=== PATIENT | male | born 1940 | race Caucasian/White ===

== ENCOUNTER → 2020-08-17 08:37 | Outpatient (BNVA) | payer OTHER, SELFPAY | PROVIDERS: PCP Internal Medicine; Visit Provider Internal Medicine | DX: J44.9 Chronic obstructive pulmonary disease, unspecified (principal); R06.02 Shortness of breath | CPT/HCPCS: 99212 ==

== ENCOUNTER 2020-09-02 10:39 | Outpatient (REF) | payer OTHER, SELFPAY ==
--- NOTE | 2020-09-02 11:50 | PFT_ITS ---
Forced vital capacity and FEV1 are both moderately reduced. ETV28-50 and MVV are also moderately reduced. No response to bronchodilators is noted. Total lung capacity moderately reduced. Diffusion capacity is markedly reduced. CONCLUSION: Restrictive pulmonary disorder, moderately severe. No obstructive component is noted. No response to bronchodilator therapy. MD PAYTON Higgins/MODL / [id number]
== END 2020-09-02 10:40 | disposition home or self-care (01) ==
LOC: HO.RESP 10:39
PROVIDERS: Visit Provider Internal Medicine
DX: J44.9 Chronic obstructive pulmonary disease, unspecified (principal); R06.02 Shortness of breath
CPT/HCPCS: 94060; 94727; 94729

== ENCOUNTER → 2020-09-28 10:19 | Outpatient (BNVA) | payer OTHER, SELFPAY | PROVIDERS: Visit Provider Internal Medicine | DX: J44.9 Chronic obstructive pulmonary disease, unspecified (principal); R06.02 Shortness of breath | CPT/HCPCS: 99212 ==

== ENCOUNTER → 2021-02-02 10:48 | Outpatient (BNVA) | payer OTHER, SELFPAY | PROVIDERS: PCP Internal Medicine; Visit Provider Internal Medicine | DX: J44.9 Chronic obstructive pulmonary disease, unspecified (principal); J30.9 Allergic rhinitis, unspecified; R06.02 Shortness of breath | CPT/HCPCS: 99212 ==

== ENCOUNTER → 2021-07-29 10:43 | Outpatient (BNVA) | payer OTHER, SELFPAY | PROVIDERS: PCP Internal Medicine; Visit Provider Internal Medicine | DX: J44.9 Chronic obstructive pulmonary disease, unspecified (principal); J98.4 Other disorders of lung; J30.9 Allergic rhinitis, unspecified; Z79.899 Other long term (current) drug therapy | CPT/HCPCS: 99212 ==

== ENCOUNTER → 2022-01-13 09:56 | Outpatient (BNVA) | payer OTHER, SELFPAY | PROVIDERS: PCP Internal Medicine; Visit Provider Internal Medicine | DX: J44.9 Chronic obstructive pulmonary disease, unspecified (principal); J98.4 Other disorders of lung; J30.9 Allergic rhinitis, unspecified; G47.33 Obstructive sleep apnea (adult) (pediatric) | CPT/HCPCS: 99212 ==

== ENCOUNTER → 2022-07-19 10:13 | Outpatient (BNVA) | payer OTHER, SELFPAY | PROVIDERS: PCP Internal Medicine; Visit Provider Internal Medicine | DX: J44.9 Chronic obstructive pulmonary disease, unspecified (principal); J98.4 Other disorders of lung; J30.9 Allergic rhinitis, unspecified; G47.33 Obstructive sleep apnea (adult) (pediatric); F17.210 Nicotine dependence, cigarettes, uncomplicated | CPT/HCPCS: 99212 ==

== ENCOUNTER → 2023-01-17 10:32 | Outpatient (BNVA) | payer OTHER, SELFPAY | PROVIDERS: PCP Internal Medicine; Visit Provider Internal Medicine ==

== ENCOUNTER 2023-07-18 10:16 | Outpatient (AMB) | payer OTHER, SELFPAY ==
--- NOTE | 2023-07-18 10:33 | MHC.OFFVIS ---
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 HE HAS STOPPED USING THE CPAP HE USED TO SAY THAT HE CAN SLEEP BETTER WITHOUT CPAP. HOWEVER NOW HE IS TELLING ME THAT HE IS NOT SLEEPING WELL. HIS SLEEP SCHEDULE IS ERRATIC . MANY TIMES HE IS SLEEPING IN THE EARLY HOURS WHEN WATCHING TV. THIS BEING THE REASON THAT HE DOES NOT THINK HE WILL USE CPAP FOR MORE THAN A FEW HOURS IN 24 HOURS. BREATHING STILL HE IS FAIRLY STABLE EXCEPT FOR THE FACT THAT HE HAS AN URGE TO CLEAR MUCUS ESPECIALLY IN THE MORNING HOURS. HIS WALKING AROUND IS SLOW SO HE DOES NOT HAVE ANY SIGNIFICANT SHORTNESS OF BREATH WHEN WALKING. HE DOES USE HIS INHALERS REGULARLY. HE STILL SMOKES HALF PACK OF CIGARETTES A DAY. [facility] Medical History Smoker JESSICA (obstructive sleep apnea) Allergic rhinitis Restrictive lung disease Short of breath on exertion COPD (chronic obstructive pulmonary disease) Social History Patient Tobacco Use Status: Current everyday Tobacco user Cigarette Packs Per Day: 0.5 Cigarettes Per Day: 10 Years Smoked: 58 Review of Systems Const All systems reviewed & are unremarkable except as noted in HPI and below Eyes Reports no additional complaints ENT Reports nasal congestion (Especially at nighttime) Card Denies chest pain, Denies irregular heart rhythm, Denies leg edema and Reports other (Has a pacemaker.) Resp Reports as per HPI GI Reports no additional complaints Reports no additional complaints Musc Reports back pain (Mild stiffness) Skin/Breast Reports system reviewed and no additional complaints, except as documented Neuro Reports no additional complaints Psych Reports no additional complaints Physical Exam Vital Signs: Last Vital Signs Pulse 62 07/18/23 10:34 BP 110/52 L 07/18/23 10:34 Pulse Ox 96 07/18/23 10:34 Oxygen Delivery Method Room Air 07/18/23 10:34 BMI result Body Mass Index 30.1 Const Other: Moderately obese General: comfortable, no acute distress, alert and awake Orientation/consciousness: patient oriented x3 HEENT Head: Yes normal to inspection General nose exam: No nasal polyps present and No nasal discharge present Face and sinus: Yes sinuses nontender Mouth: oropharynx normal Throat: Yes posterior oropharynx normal Eyes General: appearance normal, both eyes and all related structures Neck Neck: Yes normal visual inspection, Yes no lymphadenopathy, Yes trachea midline and Yes no JVD Thyroid: Thyroid normal Chest Chest palpation & inspection: normal inspection of the chest, normal palpation of entire chest wall, no tenderness and other (Pacemaker battery in the left pectoral area) Resp Other: Percussion note resonant, breath sounds are distant with prolonged Exp. phase No wheezes , rhonchi or crepitations are heard. Cardio Palpation: normal PMI Rate: regular rate Rhythm: regular rhythm Heart sounds: no gallops and no murmurs GI Palpation (GI): Soft to palpation, nontender, No hepatosplenomegaly present and no masses Auscultation: normal bowel sounds Back/Spine/Pelvis Thoracic/Lumbar Spine: thoracic and lumbar spine normal to inspection and thoraco-lumbar ROM limited Skin General skin exam: no rashes or lesions noted and dry skin Neuro General: patient oriented x3 and no focal motor deficits Cranial nerves: Yes CN's II-XII intact bilaterally Extrem General: Yes normal to inspection, Yes no calf tenderness and Yes venous stasis dermatitis Psych Appearance: grossly normal and well kempt Speech and movement: Normal speech and movement present Assessment & Plan Assessment & Plan (1) COPD (chronic obstructive pulmonary disease): Comment: He does have chronic obstructive pulmonary disease. Currently seems to be stable except for some mucous problem Code(s): J44.9 - Chronic obstructive pulmonary disease, unspecified Category: Medical Plan: [place] continue Wixela 250-50 one inh bid . Spiriva Respimat 2 inhalations once a day For mucus he may use Mucinex 400 mg bid ( may increase to 2 tablets twice a day ) He was explained that as long as he is smoking he will continue to have cough with urge to clear the mucus, (2) Smoker: Comment: He is still smoking and has smokes at least half pack of cigarettes a day. Code(s): F17.200 - Nicotine dependence, unspecified, uncomplicated Category: Social Hx Plan: Discussed in detail with him about the risks of continued smoking. Advised that he should try to cut down the number of cigarettes and with the goal of complete cessation , but he does not show any motivation to stop completely. (3) Restrictive lung disease: Comment: As per pulmonary function test he has moderately severe restrictive pulmonary disorder, Which is most likely related to his abdominal obesity. Discussed with him and advised that he should try to lose about 10 lb of weight. Also do deep breathing exercises t.i.d.. Code(s): J98.4 - Other disorders of lung Category: Medical Plan: as above (4) JESSICA (obstructive sleep apnea): Comment: He is not using the CPAP . Complains of poor sleep mainly because of his erratic sleep schedule. He needs to follow the [place] outpatient , [place] service for the CPAP. Code(s): G47.33 - Obstructive sleep apnea (adult) (pediatric) Category: Medical Plan: I talked to him and advise that he should start using the CPAP. He can use CPAP even during the daytime when he takes a nap. I think it is important for him to use the CPAP to improve his sleep. Coding Level of Care Code Est Pt Level 3 (06076) Diagnoses COPD (chronic obstructive pulmonary disease) J44.9 Smoker F17.200 Restrictive lung disease J98.4 JESSICA (obstructive sleep apnea) G47.33
[2023-07-18 10:34] VITALS: BP 110/52; PULSE 62; O2SAT 96; BMI 30.1
== END 2023-07-18 10:54 | disposition home or self-care (01) ==
PROVIDERS: PCP Internal Medicine; Referring Provider Internal Medicine; Visit Provider Internal Medicine
DX: J44.9 Chronic obstructive pulmonary disease, unspecified (principal); F17.200 Nicotine dependence, unspecified, uncomplicated; J98.4 Other disorders of lung; G47.33 Obstructive sleep apnea (adult) (pediatric)
CPT/HCPCS: 99213

== ENCOUNTER → 2023-07-18 10:16 | Outpatient (BNVA) | payer OTHER, SELFPAY | PROVIDERS: PCP Internal Medicine; Visit Provider Internal Medicine | DX: J44.9 Chronic obstructive pulmonary disease, unspecified (principal); J98.4 Other disorders of lung; G47.33 Obstructive sleep apnea (adult) (pediatric); F17.210 Nicotine dependence, cigarettes, uncomplicated; Z79.899 Other long term (current) drug therapy | CPT/HCPCS: 99212 ==

== ENCOUNTER 2023-12-07 15:07 | Outpatient (AMB) | payer OTHER, SELFPAY ==
--- NOTE | 2023-12-07 15:20 | A.OFFVIS_ITS ---
Vital Signs 12/07/23 15:22 Height 5 ft 8 in Weight 192 lb 14.472 oz BMI 29.3 BP 120/60 Blood Pressure Location Lt brachial Position Sitting Pulse 86 Pulse Source Pulse Oximeter Pulse Oximetry (%) 96 Oxygen Delivery Method Room Air Intake Visit Reasons: copd Intake Note: pt is here for follow up and states he is doing okay, some short of breath due to inactivity he feels. 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 Allergies atorvastatin Allergy (Unknown, Uncoded 12/07/23 15:41) Unknown Medication List - Last Reconciled 12/07/23 by Sunni Salinas MD apixaban (Eliquis) 2.5 mg PO BID atenolol 12.5 mg PO DAILY cholecalciferol (vitamin D3) 25 mcg PO DAILY fluticasone propion-salmeterol 250-50 mcg/dose (Wixela Inhub) 1 inh inhalation BID furosemide 20 mg PO QAM gabapentin 300 mg PO BEDTIME magnesium oxide 400 mg PO DAILY potassium chloride ER 10 mEq PO DAILY rosuvastatin 40 mg PO DAILY thiamine HCl (vitamin B1) 100 mg PO DAILY tiotropium bromide 2.5 mcg/actuation (Spiriva Respimat) 2 inhalations inhalation QAM valsartan 80 mg PO DAILY Do you need a note to return to daycare/school/sports/work: No HPI HPI copd: Details: Mr. Yu 83 years old gentleman is here for his regular 6 months follow-up. Breathing bauman he is doing okay. He has had no need to use the rescue inhaler at all. He does get short of breath if he walks up hill or fast however his walking is slow , he is doing okay. He is smoking about 10 cigarettes a day. As far as sleep apnea is concerned he does not use the CPAP at all. He claims that he is sleeping well at least 7 hours every night. He denies any daytime sleepiness . Is main problem at this time is diarrhea for about 2-3 months, He has been seen in the emergency room and now he plans to see his primary care physician. [facility] Medical History Smoker JESSICA (obstructive sleep apnea) Allergic rhinitis Restrictive lung disease Short of breath on exertion COPD (chronic obstructive pulmonary disease) Social History Patient Tobacco Use Status: Current everyday Tobacco user Cigarette Packs Per Day: 0.5 Cigarettes Per Day: 10 Years Smoked: 58 Review of Systems Const All systems reviewed & are unremarkable except as noted in HPI and below Eyes Reports no additional complaints ENT Reports nasal congestion (Especially at nighttime) Card Denies chest pain, Denies irregular heart rhythm, Denies leg edema and Reports other (Has a pacemaker.) Resp Reports as per HPI GI Reports no additional complaints Reports no additional complaints Musc Reports back pain (Mild stiffness) Skin/Breast Reports system reviewed and no additional complaints, except as documented Neuro Reports no additional complaints Psych Reports no additional complaints Physical Exam Const Other: Moderately obese General: comfortable, no acute distress, alert and awake Orientation/consciousness: patient oriented x3 HEENT Head: Yes normal to inspection General nose exam: No nasal polyps present and No nasal discharge present Face and sinus: Yes sinuses nontender Mouth: oropharynx normal Throat: Yes posterior oropharynx normal Eyes General: appearance normal, both eyes and all related structures Neck Neck: Yes normal visual inspection, Yes no lymphadenopathy, Yes trachea midline and Yes no JVD Thyroid: Thyroid normal Chest Chest palpation & inspection: normal inspection of the chest, normal palpation of entire chest wall, no tenderness and other (Pacemaker battery in the left pectoral area) Resp Other: Percussion note resonant, breath sounds are distant with prolonged Exp. phase No wheezes , rhonchi or crepitations are heard. Cardio Palpation: normal PMI Rate: regular rate Rhythm: regular rhythm Heart sounds: no gallops and no murmurs GI Palpation (GI): Soft to palpation, nontender, No hepatosplenomegaly present and no masses Auscultation: normal bowel sounds Back/Spine/Pelvis Thoracic/Lumbar Spine: thoracic and lumbar spine normal to inspection and thoraco-lumbar ROM limited Skin General skin exam: no rashes or lesions noted and dry skin Neuro General: patient oriented x3 and no focal motor deficits Cranial nerves: Yes CN's II-XII intact bilaterally Extrem General: Yes normal to inspection, Yes no calf tenderness and Yes venous stasis dermatitis Psych Appearance: grossly normal and well kempt Speech and movement: Normal speech and movement present Assessment & Plan Assessment & Plan (1) COPD (chronic obstructive pulmonary disease): Comment: He does have chronic obstructive pulmonary disease, Moderately severe. Currently seems to be stable except for some mucous problem . Code(s): J44.9 - Chronic obstructive pulmonary disease, unspecified Category: Medical Plan: Continue Wixela 250-50 1 inhalation b.i.d. , Spiriva Respimat 2.5 mcg per actuation 2 inhalations daily , does not need any rescue inhaler. Use Mucinex 600 mg once or twice a day as needed (2) Smoker: Comment: He is still smoking and smokes at least half pack of cigarettes a day. Code(s): F17.200 - Nicotine dependence, unspecified, uncomplicated Category: Social Hx Plan: Talked to him about cessation but he say is he would not be able to stop completely . (3) JESSICA (obstructive sleep apnea): Comment: He does have history of sleep apnea has use CPAP in the past. But is not using the CPAP now . Complains of poor sleep mainly because of his erratic sleep schedule. He needs to follow up with the [place] outpatient respiratory service for the CPAP. Code(s): G47.33 - Obstructive sleep apnea (adult) (pediatric) Category: Medical Plan: As long as he can get 6-7 hours of sleep at night it is okay to go without the CPAP (4) Allergic rhinitis: Comment: Has symptoms of mild allergic rhinitis especially at night, doing okay at present. Code(s): J30.9 - Allergic rhinitis, unspecified Category: Medical Plan: Advised to use Flonase 2 spray each nostril daily. During Winter he is advised to use vaporizer in the bedroom at night and in the living room during the daytime. (5) Restrictive lung disease: Comment: As per pulmonary function test he has moderately severe restrictive pulmonary disorder, Which is most likely related to his abdominal obesity. Code(s): J98.4 - Other disorders of lung Category: Medical Plan: Advised that he should do deep breathing exercises 2 to 3 times a day Coding Level of Care Code Est Pt Level 3 (09199) Diagnoses COPD (chronic obstructive pulmonary disease) J44.9 Smoker F17.200 JESSICA (obstructive sleep apnea) G47.33 Allergic rhinitis J30.9 Restrictive lung disease J98.4
[2023-12-07 15:22] VITALS: BP 120/60; PULSE 86; O2SAT 96; BMI 29.3
== END 2023-12-07 15:42 | disposition home or self-care (01) ==
PROVIDERS: PCP Internal Medicine; Visit Provider Internal Medicine
DX: J44.9 Chronic obstructive pulmonary disease, unspecified (principal); F17.200 Nicotine dependence, unspecified, uncomplicated; G47.33 Obstructive sleep apnea (adult) (pediatric); J30.9 Allergic rhinitis, unspecified; J98.4 Other disorders of lung
CPT/HCPCS: 99213

== ENCOUNTER → 2023-12-07 15:07 | Outpatient (BNVA) | payer OTHER, SELFPAY | PROVIDERS: PCP Internal Medicine; Visit Provider Internal Medicine | DX: J44.9 Chronic obstructive pulmonary disease, unspecified (principal); G47.33 Obstructive sleep apnea (adult) (pediatric); J30.9 Allergic rhinitis, unspecified; J98.4 Other disorders of lung; F17.210 Nicotine dependence, cigarettes, uncomplicated | CPT/HCPCS: 99212 ==

== ENCOUNTER 2024-06-11 15:27 | Outpatient (AMB) | payer OTHER, SELFPAY ==
[2024-06-11 15:33] VITALS: BP 110/62; PULSE 65; O2SAT 98; BMI 29.3
--- NOTE | 2024-06-11 15:33 | MHC.OFFVIS ---
Vital Signs 06/11/24 15:33 Height 5 ft 8 in Weight 193 lb 0.8 oz BMI 29.3 BP 110/62 Blood Pressure Location Lt brachial Position Sitting Pulse 65 Pulse Source Pulse Oximeter Pulse Oximetry (%) 98 Oxygen Delivery Method Room Air Intake Visit Reasons: copd Intake Note: pt is here for follow up and states, he states he is about the same with his breathing Environmental Adviser Required: No Allergies atorvastatin Allergy (Unknown, Uncoded 06/11/24 15:39) Unknown HPI HPI copd: Details: THIS 84 YEARS OLD GENTLEMAN WITH CHRONIC OBSTRUCTIVE PULMONARY DISEASE. COMES FOR FOLLOW-UP AFTER 6 MONTHS. CONTINUES TO USE HIS INHALERS INCLUDING WIXELA 250-50 B.I.D. AND SPIRIVA RESPIMAT 2 INHALATIONS DAILY. HE DOES NOT NEED TO USE THE RESCUE INHALER EXCEPT OCCASIONALLY. STILL SMOKING 10 CIGARETTES A DAY AND HAS NO PLAN TO CUT IT DOWN. 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 HAS NOT NEEDED TO USE O2. [facility] Medical History Smoker JESSICA (obstructive sleep apnea) Allergic rhinitis Restrictive lung disease Short of breath on exertion COPD (chronic obstructive pulmonary disease) Social History Patient Tobacco Use Status: Current everyday Tobacco user Cigarette Packs Per Day: 0.5 Cigarettes Per Day: 10 Years Smoked: 58 Review of Systems Const All systems reviewed & are unremarkable except as noted in HPI and below Eyes Reports no additional complaints ENT Reports nasal congestion (Especially at nighttime) Card Denies chest pain, Denies irregular heart rhythm, Denies leg edema and Reports other (Has a pacemaker.) Resp Reports as per HPI GI Reports no additional complaints Reports no additional complaints Musc Reports back pain (Mild stiffness) Skin/Breast Reports system reviewed and no additional complaints, except as documented Neuro Reports no additional complaints Psych Reports no additional complaints Physical Exam Vital Signs: Last Vital Signs Pulse 65 06/11/24 15:33 BP 110/62 06/11/24 15:33 Pulse Ox 98 06/11/24 15:33 Oxygen Delivery Method Room Air 06/11/24 15:33 BMI result Body Mass Index 29.3 Const Other: Moderately obese General: comfortable, no acute distress, alert and awake Orientation/consciousness: patient oriented x3 HEENT Head: Yes normal to inspection General nose exam: No nasal polyps present and No nasal discharge present Face and sinus: Yes sinuses nontender Mouth: oropharynx normal Throat: Yes posterior oropharynx normal Eyes General: appearance normal, both eyes and all related structures Neck Neck: Yes normal visual inspection, Yes no lymphadenopathy, Yes trachea midline and Yes no JVD Thyroid: Thyroid normal Chest Chest palpation & inspection: normal inspection of the chest, normal palpation of entire chest wall, no tenderness and other (Pacemaker battery in the left pectoral area) Resp Other: Percussion note resonant, breath sounds are distant with prolonged Exp. phase No wheezes , rhonchi or crepitations are heard. Cardio Palpation: normal PMI Rate: regular rate Rhythm: regular rhythm Heart sounds: no gallops and no murmurs GI Palpation (GI): Soft to palpation, nontender, No hepatosplenomegaly present and no masses Auscultation: normal bowel sounds Back/Spine/Pelvis Thoracic/Lumbar Spine: thoracic and lumbar spine normal to inspection and thoraco-lumbar ROM limited Skin General skin exam: no rashes or lesions noted and dry skin Neuro General: patient oriented x3 and no focal motor deficits Cranial nerves: Yes CN's II-XII intact bilaterally Extrem General: Yes normal to inspection, Yes no calf tenderness and Yes venous stasis dermatitis Psych Appearance: grossly normal and well kempt Speech and movement: Normal speech and movement present Assessment & Plan Assessment & Plan (1) COPD (chronic obstructive pulmonary disease): Comment: He does have chronic obstructive pulmonary disease, Moderately severe. Currently seems to be stable except for some mucous problem and mild intermittent cough. Code(s): J44.9 - Chronic obstructive pulmonary disease, unspecified Category: Medical Plan: Continue Wixela 250-50 1 inhalation b.i.d. and Spiriva Respimat 2.5 mcg 2 inhalations daily Albuterol HFA 2 puffs Q 4-6 hours only p.r.n. (2) Restrictive lung disease: Comment: As per pulmonary function test he has moderately severe restrictive pulmonary disorder, Which is most likely related to his abdominal obesity. Code(s): J98.4 - Other disorders of lung Category: Medical Plan: Try to keep weight under control. And do deep breathing exercises at least 3 times a day. (3) JESSICA (obstructive sleep apnea): Comment: He does have history of sleep apnea has use CPAP in the past. But is not using the CPAP now . Complains of poor sleep mainly because of his erratic sleep schedule. He needs to follow up with the [place] outpatient respiratory service for the CPAP. And management of sleep apnea. Code(s): G47.33 - Obstructive sleep apnea (adult) (pediatric) Category: Medical Plan: as above (4) Smoker: Comment: He is still smoking and smokes at least half pack of cigarettes a day. Code(s): F17.200 - Nicotine dependence, unspecified, uncomplicated Category: Social Hx Plan: Discussed with him again and he has no intention of quitting or cutting down the number of cigarettes. Coding Level of Care Code Est Pt Level 3 (17492) Diagnoses COPD (chronic obstructive pulmonary disease) J44.9 Restrictive lung disease J98.4 JESSICA (obstructive sleep apnea) G47.33 Smoker F17.200
--- OUTSIDE RECORDS SUMMARY | 2024-06-11 18:22 | XMS_ITS ---
Author Organization [facility] Address [address] [place] [id number] Care Team Providers Care Special Agent Name Role Phone Mehdi Yadav Primary Care Provider Antonio Gilmore [facility] [phone] Encounters Encounter Location Date Provider Diagnosis [facility] [address] [id number] 07/18/2023 Antonio Topete Plan Of Treatment No Information Progress Notes * Siddhartha CRANEOB:1940 ( 84 yo M)Acc No.[id number]:07/18/2023 Progress Notes Patient:?Uriel CRANE Provider:?Antonio Topete DPM :1940???Age:83 Y???Sex:Male Carlos e:07/18/2023 Address:[address] [place], [place] [id number] Pcp:Mehdi Yadav Subjective: * Chief Complaints: * ??? * Medical History:? Objective: * Vitals:? Assessment: Plan: * Treatment: * Images: * The named appointment provid er may or may not be the originator of this progress note, and it is not deemed complete until electronically signed by the appointment provider. Sign off status: Pending * Provider:?Antonio Topete DPM Date:? 024 Generated for Donta smith/Shyam/Areliitting on:?06/11/2024 11:06 AM EDT
--- OUTSIDE RECORDS SUMMARY | 2024-06-11 18:22 | XMS_ITS | Clinical Summary ---
Author Organization [facility] Address [address] [place] [address] Phone Care Team Providers Care Thread Puller Name Role Phone Mehdi Yadav MD Primary Care Provider Allergies No known active allergies Medications apixaban (ELIQUIS) 2.5 mg tablet Take 1 tablet (2.5 mg total) by mouth 2 (two) times a day. Active atenoloL (TENORMIN) 25 mg tablet Take 0.5 tablets (12.5 mg total) by mouth 1 (one) time each day. Active cholecalciferol (VITAMIN D-3) 25 mcg (1,000 unit) tablet Take 1 tablet (1,000 Units total) by mouth 1 (one) time each day. Active cyanocobalamin (VITAMIN B-12) 1,000 mcg tablet Take 1 tablet (1,000 mcg total) by mouth 1 (one) time each day. Active fluticasone-karely meterol (ADVAIR DISKUS) 250-50 mcg/dose diskus inhaler Inhale 1 puff by mouth 2 (two) times a day. Active fluticasone propionate (FLONASE) 50 mcg/actuation nasal spray Administer 1 spray into affected nostril(s). Active furosemide (LASIX) 20 mg tablet Take 1 tablet (20 mg total) by mouth 1 (one) time each day. Active gabapentin (NEURONTIN) 300 mg capsule Take 1 capsule (300 mg total) by mouth at bedtime. Active omega-3 acid ethyl esters (LOVAZA) 1 gram capsule Take 1 capsule (1 g total) by mouth 1 (one) time each day. Active potassium chloride (Pokonza) 10 mEq packet Take 1 tablet by mouth 2 (two) times a day. Active rosuvastatin (CRESTOR) 20 mg tablet Take 1 tablet (20 mg total) by mouth 1 (one) time each day. Active tiotropium (Spiriva Respimat) 2.5 mcg/actuation inhalation spray Inhale 2 puffs by mouth 1 (one) time each day. Active valsartan (DIOVAN) 80 mg tablet Take 1 tablet (80 mg total) by mouth 1 (one) time each day. Active THIAMINE HCL, VITAMIN B1, ORAL Take 100 mg by mouth 1 (one) time each day. Active magnesium oxide (MAG-OX) 400 mg magnesium tablet Take 1 tablet (400 mg total) by mouth 1 (one) time each day. Active Active Problems Problem Noted Date Diagnosed Date Atrial fibrillation 07/23/2021 Overview (12/26/2023): Last Assessment & Plan: Patient with a history of PAF. Very rare breakthrough last episode in April short lived episode. Patient remains chronically anticoagulated with adjustments made for age and renal insufficiency. Patient is asymptomatic from the A-fib. 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 He has a Medtronic device in place. He will continue with routine visits to our device clinic. Coronary artery disease 07/23/2021 Overview (12/26/2023): Last Assessment & Plan: Remote history of coronary disease. Asymptomatic at this time bypass is almost 20 years old lipid profile under good control [facility] Patient experiences no chest pain or discomfort though sedentary. Sleep apnea 07/23/2021 Overview (12/26/2023): Last Assessment & Plan: Patient strongly encouraged to pull out his tricycle out of his garage and start while riding on the street to try to build up stamina and to assess his functional capacity. Otherwise no change in therapy at this time patient complains of daytime tiredness and fatigue most likely secondary to poorly controlled sleep apnea. I have asked him discussed the possibility of a referral to a sleep pattern physician through the [facility]. [facility] is [facility] sleep [facility]. His daughter was present and has some experience with CPAP machines. And I encouraged them to discuss the possibility of referral for a sleep physician assessment or at least a titration study which she is never had Encounters Date Type Department Care Team Description 06/07/2024 7:20 PM EDT Ancillary Procedure [facility] [address] [place] [address] 05/09/2024 10:20 AM EST Ancillary Procedure [facility] [address] [facility] [address] [place] [phone] from Last 3 Months Immunizations Name Administration Dates Next Due Pfizer SARS-CoV-2 COVID-19, mRNA, LNP-S, preservative free 05/04/2020,04/13/2020 Social History Tobacco Use Types Packs/Day Years Used Date Smoking Tobacco: Every Day Smokeless Tobacco: Never Alcohol Use Standard Drinks/Week Comments Yes 0 (1 standard drink = 0.6 oz pur e alcohol) Sex and Gender Information Value Date Recorded Sex Assigned at Not on file Legal Sex Male 7:36 AM EST Gender Identity Not on file Sexual Orientation Not on file Obstetrics History Last Filed Vital Signs Vital Sign Reading Time Taken Comments Blood Pressure 108/52 02/05/2024 2:20 PM EST Pulse 71 02/05/2024 2:20 PM EST Temperature - - Respiratory Rate - - Oxygen Saturation - - Inhaled Oxygen Concentration - - Weight 86.2 kg (190 lb) 02/05/2024 2:20 PM EST Height 170.2 cm (5' 7 ) 02/05/2024 2:20 PM EST Body Mass Index 29.76 02/05/2024 2:20 PM EST Plan of Treatment Upcoming Encounters Date Type Department Care Team (Late Contact Info) Description 08/05/2024 11:00 AM EDT Ancillary Procedure [facility] Cardiology [facility] - [facility] [address] [place] [address] Health Maintenance Due Date Last Done Comments Zoster Vaccines (2 of 3) 02/01/2013 12/07/2012 RSV Immunization Adult Patients (1 - 1-dose 75+ series) 2013 Pneumococcal Vaccine: 50+ Years (2 of 2 - PPSV23) 10/03/2014 08/08/2014, 03/06/2008 Cholesterol Screening (Lipid Panel) 02/13/2022 Depression Screening 02/13/2022 Falls Risk Assessment 02/13/2022 Hypertension/CHF/CAD Annual BMP Blood Test 02/13/2022 Social Influencers of Health Screening 02/13/2022 COVID-19 Vaccine (3 - season) 2023 05/04/2020, 04/13/2020 DTaP,Tdap,and Td Vaccines (3 - Td or Tdap) 01/22/2024 01/21/2014, 03/06/2008 Influenza Vaccine Completed 12/20/2023, , 12/29/2021, Additional history exists HIB Vaccines Aged Out No longer eligi ble based on patient's age to complete this topic HPV Vaccines Aged Out No longer eligi ble based on patient's age to complete this topic Hepatitis A Vaccines Aged Out No long er eligible based on patient's age to complete this topic Hepatitis B Vaccines Aged Out No long er eligible based on patient's age to complete this topic IPV Vaccines Aged Out No longer eligi ble based on patient's age to complete this topic MMR Vaccines Aged Out No longer eligi ble based on patient's age to complete this topic Meningococcal ACWY Vaccine Aged Out N o longer eligible based on patient's age to complete this topic Meningococcal B Vaccine Aged Out No l onger eligible based on patient's age to complete this topic RSV Immunization Patients Under 20 months Aged Out No longer eligible based on patient's age to complete this topic Varicella Vaccines Aged Out No longer eligible based on patient's age to complete this topic Medical Devices Implanted Type Area Manager Retention Device Identifier Shelf Expiration Date Model / Serial / Lot Medt-Card Lv Xt Dr Salas [id number] Implanted:05/2021 (Quantity not on file) Cardiac Pacemaker MEDTRONIC - CARDIAC RHYTH-CRDM LV XT DR SALAS [id number] / [id number] / Procedures Procedure Name Priority Date/Time Associated Diagnosis Comments CARDIAC DEVICE CHECK- REMOTE- MURJ Routine 06/07/2024 7:16 PM EDT CARDIAC DEVICE CHECK- REMOTE- MURJ Routine 05/09/2024 10:16 AM EST from Last 3 Months Results * Cardiac device check - Remote- MURJ (06/07/2024 7:16 PM EDT) Only the most recent of2 resultswithin the time period is included. Date Time Interrogation Session [id number] CV DEVICE CHECK Type Interrogation Session Remote CV DEVICE CHECK Implantable Pulse Generator Manager Retention MDT CV DEVICE CHECK Implantable Pulse Generator Type IPG CV DEVICE CHECK Implantable Pulse Generator Model Al[place] XT DR MRI [id number] CV DEVICE CHECK Implantable Pulse Generator Serial Number [id number] CV DEVICE CHECK Implantable Pulse Generator Implant Date 20210706 CV DEVICE CHECK Battery Remaining Longevity 122.0 CV DEVICE CHECK Battery Voltage 3.010 CV D EVICE CHECK Battery MANAGER CENTER Trigger 2.625 CV DEVICE CHECK Battery Status Middle of Service CV DEVICE CHECK Sunil Statistic RA Percent Paced 95.71 CV DEVICE CHECK Sunil Statistic RV Percent Paced 99.97 CV DEVICE CHECK Atrial Tachy Statistic AT/AF [place] Percent 0.00 CV DEVICE CHECK Lead Channel Sensing Intrinsic Amplitude 3.750 CV DEVICE CHECK Lead Channel Setting Sensing Sensitivity 0.30 CV DEVICE CHECK Lead Channel Impedance Value 475 CV DEVICE CHECK Lead Channel Pacing Threshold Amplitude 0.625 CV DEVICE CHECK Lead Channel Pacing Threshold Pulse Width 0.4 CV DEVICE CHECK Lead Channel RA Pacing Threshold Date 2023-11-02 CV DEVICE CHECK Lead Channel Setting Pacing Amplitude 1.500 CV DEVICE CHECK Lead Channel Setting Pacing Pulse Width 0.4 CV DEVICE CHECK Lead Channel Sensing Intrinsic Amplitude 28.875 CV DEVICE CHECK Lead Channel Setting Sensing Sensitivity 0.90 CV DEVICE CHECK Lead Channel Impedance Value 589 CV DEVICE CHECK Lead Channel Pacing Threshold Amplitude 0.625 CV DEVICE CHECK Lead Channel Pacing Threshold Pulse Width 0.4 CV DEVICE CHECK Lead Channel RV Pacing Threshold Date 2023-11-02 CV DEVICE CHECK Lead Channel Setting Pacing Amplitude 2.000 CV DEVICE CHECK Lead Channel Setting Pacing Pulse Width 0.4 CV DEVICE CHECK Sunil Setting Mode (NBG Code) DDDR CV DEVICE CHECK Sunil Setting Lower Rate Limit 60 CV DEVICE CHECK Sunil Setting AT Mode Switch Rate 171 CV DEVICE CHECK Sunil Setting Maximum Tracking Rate 130 CV DEVICE CHECK Sunil Setting Maximum Sensor Rate 130 CV DEVICE CHECK Sunil Setting PAV Delay 180 CV DEVICE CHECK Sunil Setting JAY Delay 150 CV DEVICE CHECK Zone Setting Type Category AT/AF CV DEVICE CHECK Rate 171 CV DEVICE CHECK Therapies Some Rx Off CV DEVIC E CHECK Zone Setting Status Monitor CV DEVICE CHECK Zone ID 2 CV DEVICE CHECK Zone Setting Type Category VT CV DEVICE CHECK Rate 150 CV DEVICE CHECK Zone Setting Status ENABLED CV DEVICE CHECK Zone ID 6 CV DEVICE CHECK Date of Service 2023-11-28 CV DEVICE CHECK Anatomical Region Laterality Modality Device Interroga tion 11/03/2023 1:29 AM EDT Impressions 11/28/2023 12:46 PM EDT Normal Remote: No Events ?? Narrative Procedure Note Bao Pacheco MD - 06/07/2024 IMPRESSION: Normal Remote: No Events Bao Pacheco MD CV IMPLANTABLE CARDIAC DEVICE PROCEDURES Final Result from Last 3 Months Insurance [facility] Care Teams Thread Puller Relationship Specialty Start Date End Date Mehdi Yadav MD [address] [place] PCP - General Internal Medicine 07/23/21
--- OUTSIDE RECORDS SUMMARY | 2024-06-11 18:22 | XMS_ITS | Encounter Summary ---
Author Organization [facility] Address [address] [place] [address] Care Team Providers Care Galley Boy Name Role Phone Mehdi Yadav MD Primary Care Provider Encounter Details Date Type Department Care Team (Late st Contact Info) Description 06/07/2024 7:20 PM EDT Ancillary Procedure [facility] Cardiology [facility] [address] [facility] [address] [place] [phone] Social History Tobacco Use Types Packs/Day Years Used Date Smoking Tobacco: Every Day Smokeless Tobacco: Never Alcohol Use Standard Drinks/Week Comments Yes 0 (1 standard drink = 0.6 oz pur e alcohol) Sex and Gender Information Value Date Recorded Sex Assigned at Not on file Legal Sex Male 7:36 AM EST Gender Identity Not on file Sexual Orientation Not on file documented as of this encounter Plan of Treatment Upcoming Encounters Date Type Department Care Team (Late st Contact Info) Description 08/05/2024 11:00 AM EDT Ancillary Procedure [facility] Cardiology [facility] [address] [facility] [address] [place] [address] documented as of this encounter Procedures Procedure Name Priority Date/Time Associated Diagnosis Comments CARDIAC DEVICE CHECK- REMOTE- MURJ Routine 06/07/2024 7:16 PM EDT documented in this encounter Results * Cardiac device check - Remote- MURJ (06/07/2024 7:16 PM EDT) Date Time Interrogation Session [id number] CV DEVICE CHECK Type Interrogation Session Remote CV DEVICE CHECK Implantable Pulse Generator Software Programmer MDT CV DEVICE CHECK Implantable Pulse Generator Type IPG CV DEVICE CHECK Implantable Pulse Generator Model Ney XT DR MRI [id number] CV DEVICE CHECK Implantable Pulse Generator Serial Number [id number] CV DEVICE CHECK Implantable Pulse Generator Implant Date 20210706 CV DEVICE CHECK Battery Remaining Longevity 122.0 CV DEVICE CHECK Battery Voltage 3.010 CV D EVICE CHECK Battery WEB ASSISTANT Trigger 2.625 CV DEVICE CHECK Battery Status Middle of Service CV DEVICE CHECK Sunil Statistic RA Percent Paced 95.71 CV DEVICE CHECK Sunil Statistic RV Percent Paced 99.97 CV DEVICE CHECK Atrial Tachy Statistic AT/AF [place] Percent 0.00 CV DEVICE CHECK Lead Channel [...] CV IMPLANTABLE CARDIAC DEVICE PROCEDURES Final Result documented in this encounter Visit Diagnoses Not on filedocumented in this encounter Care Teams Galley Boy Relationship Specialty Start Date End Date Mehdi Yadav MD [address] [place] PCP - General Internal Medicine 07/23/21 documented as of this encounter
--- OUTSIDE RECORDS SUMMARY | 2024-06-11 18:22 | XMS_ITS | Patient Health Record ---
Author Organization [facility] Address [address] [place] [address] Care Team Providers Care Rn Gynecology Name Role Phone Mehdi Yadav Primary Care Provider UnaAntonio Butterfield Unavailable [phone] Reason For Referral No Information Plan Of Treatment No Information Insurance Providers Payer Name Payer Address Payer Phone Subscriber Number Group Number Insured Name Patient Relationship to Insured Coverage Start Date Coverage End Date VAC[employer] [address] [place] [id number] Uriel Yu Self - patient is the insured
--- OUTSIDE RECORDS SUMMARY | 2024-06-11 18:22 | XMS_ITS ---
Author Organization [facility] Address [address] [place] [address] Care Team Providers Care Salesperson Jewelry Name Role Phone Mehdi Yadav Primary Care Provider UnaAntonio Butterfield Unavailable [phone] REASON FOR VISIT 07/17/22 appt Encounters Encounter Location Date Provider Diagnosis [facility] [address] [address] 05/23/2023 Antonio Topete Plan Of Treatment No Information Progress Notes * Siddhartha CRANEOB:1940 ( 83 yo M)Acc No.[id number]:05/23/2023 Patient:?Uriel Crane :1940???Age:83 Y???Sex:Male Address:[address] [place] [address], [place], [address] * true * Date:? Generated for Donta smith/Shyam/eTransmitting on:?06/11/2024 11:06 AM EDT
== END 2024-06-11 15:53 | disposition home or self-care (01) ==
LOC: HO.HPS 15:27
PROVIDERS: PCP Internal Medicine; Visit Provider Internal Medicine
DX: J44.9 Chronic obstructive pulmonary disease, unspecified (principal); J98.4 Other disorders of lung; G47.33 Obstructive sleep apnea (adult) (pediatric); F17.200 Nicotine dependence, unspecified, uncomplicated
CPT/HCPCS: 99213

== ENCOUNTER → 2024-06-11 15:27 | Outpatient (BNVA) | payer OTHER, SELFPAY | PROVIDERS: PCP Internal Medicine; Visit Provider Internal Medicine | DX: J44.9 Chronic obstructive pulmonary disease, unspecified (principal); J98.4 Other disorders of lung; G47.33 Obstructive sleep apnea (adult) (pediatric); F17.210 Nicotine dependence, cigarettes, uncomplicated | CPT/HCPCS: 99212 ==

== ENCOUNTER 2024-12-10 15:09 | Outpatient (AMB) | payer OTHER, SELFPAY ==
--- OUTSIDE RECORDS SUMMARY | 2024-12-10 09:10 | XMS_ITS | Encounter Summary ---
Author Organization [facility] Address [address] [place] [address] Care Team Providers Care Supervising Floorperson Name Role Phone Physician, No Pcp Primary Care Provider Unavaila ble Reason for Visit * Reason Comments Follow-up * Other Medical (Routine) - Authorized Specialty Diagnoses / Procedures Referred By Contac t Referred To Contact Cardiology Diagnoses [Per MAGY, Follow up in about 3 months (around 10/16/2024) for Recheck, FOLLOW UP WITH AB.] 07/16/24, garth w/pt handed appt ltr- Sujey V Procedures OFFICE VISIT Nazario Bustillos DO [address] [place], [place] Phone: tel: fax: [facility] Cardiology [facility] [address] [place] [address] Phone: tel: fax: Referral ID Status Reason Start Date Expiration Date V isits Requested Visits Authorized [id number] Authorized 11/29/2024 12/10/[phone] Encounter Details Date Type Department Care Team (Late st Contact Info) Description 12/10/2024 9:10 AM EDT Office Visit [facility] Cardiology [facility] [address] [place] [address] Evelina Blackman NP [address] [place] [address] [place] [address] Coronary artery disease involving dry creek coronary artery of dry creek heart without angina pectoris (Primary Dx); Atrial fibrillation, unspecified type (CMS/HCC V24, CMS/HCC V28); Bradycardia; Localized edema Social History Tobacco Use Types Packs/Day Years [...] on file documented as of this encounter Last Filed Vital Signs Vital Sign Reading Time Taken Comments Blood Pressure 106/58 12/10/2024 9:13 AM EDT Pulse 81 12/10/2024 9:13 AM EDT Temperature - - Respiratory Rate - - Oxygen Saturation 95% 12/10/2024 9:13 AM EDT Inhaled Oxygen Concentration - - Weight 83.7 kg (184 lb 9.6 oz) 12/10/2024 9:13 A M EDT Height 172.7 cm (5' 8 ) 12/10/2024 9:13 AM EDT Body Mass Index 28.07 12/10/2024 9:13 AM EDT documented in this encounter Ordered Prescriptions Prescription Sig Dispense Quantity Refills Last Filled Start Date End Date rosuvastatin (CRESTOR) 20 mg tablet Take 1 tablet (20 mg total) by mouth 1 (one) time each day. 90 tablet 1 12/10/2024 apixaban (ELIQUIS) 2.5 mg tablet Take 1 tablet (2.5 mg total) by mouth 2 (two) times a day. 180 tablet 2 12/10/2024 documented in this encounter Progress Notes * Evelina Blackman NP - 12/10/2024 9:10 AM EDTAssociated Problem(s): Atrial fibrillation (CMS/HCC V24, CMS/HCC V28) Patient has history of paroxysmal atrial fibrillation with very rare breakthrough. He continues on chronic anticoagulation with Eliquis 2.5 mg twice daily. This is appropriately dosed given his advanced age and renal insufficiency. He remains asymptomatic and denies any bleeding or excessive bruising. * Evelina Blackman NP - 12/10/2024 9:10 AM EDTAssociated Problem(s): Bradycardia Patient has history of AV ja block status post permanent pacemaker. He has a Medtronic device inplace. He continues with routine visits to our device clinic. * Evelina Blackman NP - 12/10/2024 9:10 AM EDTAssociated Problem(s): Coronary artery disease Patient has history of coronary artery disease with previous bypass surgery. He feels well and denies any exertional anginal symptoms. He remains on cardioprotective medical therapy with beta-blockerand statin. He is on Eliquis for thrombolic protection. I have reviewed with the patient the importance of a heart healthy lifestyle which includes eating a low-fat low-salt diet, getting regular exercise, maintaining a healthy weight, not smoking, and following up with routine medical care. * Evelina Blackman NP - 12/10/2024 9:10 AM EDTAssociated Problem(s): Localized edema Patient reports that leg edema has improved since witching to torsemide. He also uses compression stockings which have been helpful. documented in this encounter Plan of Treatment Upcoming Encounters Date Type Department Care Team (Late st Contact Info) Description 08/05/2025 1:00 PM EDT Ancillary Procedure [facility] [address] [place] [address] documented as of this encounter Visit Diagnoses Diagnosis Coronary artery disease involving dry creek coronary artery of [place] heart without angina pectoris- Primary Atrial fibrillation, unspecified type (CMS/HCC V24, CMS/HCC V28) Bradycardia Other specified cardiac dysrhythmias Localized edema Edema Encounter for adjustment or management of cardiac device documented in this encounter Discontinued Medications Medication Sig Discontinue Reason Start Date End Da te apixaban (ELIQUIS) 5 mg tablet Take 0.5 tablets (2.5 mg total) by mouth 2 (two) times a day. Reorder 12/10/2024 rosuvastatin (CRESTOR) 40 mg tablet Take 0.5 tablets (20 mg total) by mouth 1 (one) time each day. Reorder 12/10/2024 documented as of this encounter Care Teams Supervising Floorperson Relationship Specialty Start Date End Date Physician, No Pcp PCP - General 11/18/24 documented as of this encounter
--- NOTE | 2024-12-10 15:14 | A.OFFVIS_ITS ---
Vital Signs 12/10/24 15:16 Height 5 ft 8 in Weight 184 lb 0.6 oz BMI 28.0 BP 112/60 Blood Pressure Location Lt brachial Position Sitting Pulse 81 Pulse Source Pulse Oximeter Pulse Oximetry (%) 96 Oxygen Delivery Method Room Air Intake Visit Reasons: copd Intake Note: pt is here for follow up and little coughing, wheezing and some short of breath, pt uses nebulizer prn Coremaking Machine Setter Required: No Delivery Room Clerk: Delivery Room Clerk offered & declined Allergies atorvastatin Allergy (Unknown, Uncoded 12/10/24 15:21) Unknown Medication List - Last Reconciled 12/10/24 by Sunni Salinas MD apixaban (Eliquis) 2.5 mg PO BID atenolol 12.5 mg PO DAILY cholecalciferol (vitamin D3) 25 mcg PO DAILY fluticasone propion-salmeterol 250-50 mcg/dose (Wixela Inhub) 1 inh inhalation BID fluticasone propionate 50 mcg/actuation (Flonase Allergy Relief) 1 spray intranasal BID folic acid 1 mg PO DAILY gabapentin 300 mg PO BEDTIME guaifenesin ER (Mucinex) 600 mg PO DAILY magnesium oxide 400 mg PO DAILY mecobalamin (vitamin B12) 1,000 mcg sublingual BEDTIME melatonin 5 mg PO DAILY rosuvastatin 40 mg PO DAILY thiamine HCl (vitamin B1) 100 mg PO DAILY tiotropium bromide 2.5 mcg/actuation (Spiriva Respimat) 2 inhalations inhalation QAM torsemide 20 mg PO DAILY Do you need a note to return to daycare/school/sports/work: No HPI HPI copd: Details: 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 HE HAS IMPAIRED LOCOMOTION AND USES THE WALKER FOR GOING OUTDOORS. EVEN WITH THAT LIMITATION HE STILL DOES SOME YD WORK WHEN WEATHER IS NICE. HE HAS ONLY MILD TO MODERATE AMOUNT OF COUGH AND IS ABLE TO RAISE THE MUCUS. HAS NO A BOUTS OF WHEEZING. CONTINUES TO USE WIXELA TWICE A DAY AND SPIRIVA RESPIMAT ONCE A DAY USES THE ALBUTEROL SOLUTION IN THE NEBULIZER ONCE IN A WHILE. ALSO USES MUCINEX 600 MG ONCE A DAY WHICH HELPS TO BRING UP THE MUCUS. HIS MAIN ISSUE AT THIS TIME IS SWELLING OF THE LEFT LEG WITH SUPERFICIAL ULCERATION WHICH IS HEALING. [facility] Medical History Smoker JESSICA (obstructive sleep apnea) Allergic rhinitis Restrictive lung disease Short of breath on exertion COPD (chronic obstructive pulmonary disease) Social History Patient Tobacco Use Status: Current everyday Tobacco user Cigarette Packs Per Day: 0.5 Cigarettes Per Day: 10 Years Smoked: 58 Review of Systems Const All systems reviewed & are unremarkable except as noted in HPI and below Eyes Reports no additional complaints ENT Reports nasal congestion (Especially at nighttime) Card Denies chest pain, Denies irregular heart rhythm, Denies leg edema and Reports other (Has a pacemaker.) Resp Reports as per HPI GI Reports no additional complaints Reports no additional complaints Musc Reports back pain (Mild stiffness) Skin/Breast Reports system reviewed and no additional complaints, except as documented Neuro Reports no additional complaints Psych Reports no additional complaints Physical Exam Vital Signs: Last Vital Signs Pulse 81 12/10/24 15:16 BP 112/60 12/10/24 15:16 Pulse Ox 96 12/10/24 15:16 Oxygen Delivery Method Room Air 12/10/24 15:16 BMI result Body Mass Index 28.0 Const Other: Moderately obese General: comfortable, no acute distress, alert and awake Orientation/consciousness: patient oriented x3 HEENT Head: Yes normal to inspection General nose exam: No nasal polyps present and No nasal discharge present Face and sinus: Yes sinuses nontender Mouth: oropharynx normal Throat: Yes posterior oropharynx normal Eyes General: appearance normal, both eyes and all related structures Neck Neck: Yes normal visual inspection, Yes no lymphadenopathy, Yes trachea midline and Yes no JVD Thyroid: Thyroid normal Chest Chest palpation & inspection: normal inspection of the chest, normal palpation of entire chest wall, no tenderness and other (Pacemaker battery in the left pectoral area) Resp Other: Percussion note resonant, breath sounds are distant with prolonged Exp. phase No wheezes , rhonchi or crepitations are heard. Cardio Palpation: normal PMI Rate: regular rate Rhythm: regular rhythm Heart sounds: no gallops and no murmurs GI Palpation (GI): Soft to palpation, nontender, No hepatosplenomegaly present and no masses Auscultation: normal bowel sounds Back/Spine/Pelvis Thoracic/Lumbar Spine: thoracic and lumbar spine normal to inspection and thoraco-lumbar ROM limited Skin General skin exam: no rashes or lesions noted and dry skin Neuro General: patient oriented x3 and no focal motor deficits Cranial nerves: Yes CN's II-XII intact bilaterally Extrem General: Yes normal to inspection, Yes no calf tenderness and Yes venous stasis dermatitis (LT LEG, SWOLLEN WITH A SUPERFICIAL ULCERATION, ) Psych Appearance: grossly normal and well kempt Speech and movement: Normal speech and movement present Assessment & Plan Assessment & Plan (1) COPD (chronic obstructive pulmonary disease): Comment: He does have chronic obstructive pulmonary disease, Moderately severe. Currently seems to be stable except for some mucous problem and mild intermittent cough. Code(s): J44.9 - Chronic obstructive pulmonary disease, unspecified Category: Medical Plan: CONTINUE THE CURRENT MEDICATIONS WHICH ARE FOLLOWS WIXELA 250-51 INHALATION B.I.D. SPIRIVA RESPIMAT 2.5 MCG PER ACTUATION 2 INHALATIONS DAILY ALBUTEROL HFA 2 PUFFS Q 6 HOURS P.R.N. MUCINEX ER 600 MG ONCE A DAY (2) Restrictive lung disease: Comment: As per pulmonary function test he has moderately severe restrictive pulmonary disorder, Which is most likely related to his abdominal obesity. Code(s): J98.4 - Other disorders of lung Category: Medical Plan: ENCOURAGED TO DO DEEP BREATHING EXERCISES 2 OR 3 TIMES A DAY (3) JESSICA (obstructive sleep apnea): Comment: He does have history of sleep apnea has use CPAP in the past. But is not using the CPAP now . Complains of poor sleep mainly because of his erratic sleep schedule. He needs to follow up with the [facility] outpatient respiratory service for the CPAP. And management of sleep apnea. Code(s): G47.33 - Obstructive sleep apnea (adult) (pediatric) Category: Medical Plan: PATIENT IS NOT USING THE CPAP AT THIS TIME (4) Smoker: Comment: He is still smoking and smokes at least half pack of cigarettes a day. Code(s): F17.200 - Nicotine dependence, unspecified, uncomplicated Category: Social Hx Plan: TALKED TO HIM ABOUT THIS AND HE IS NOT PREPARED TO QUIT COMPLETELY Coding Level of Care Code Est Pt Level 3 (63150) Diagnoses COPD (chronic obstructive pulmonary disease) J44.9 Restrictive lung disease J98.4 JESSICA (obstructive sleep apnea) G47.33 Smoker F17.200
[2024-12-10 15:16] VITALS: BP 112/60; PULSE 81; O2SAT 96; BMI 28.0
--- OUTSIDE RECORDS SUMMARY | 2024-12-10 18:23 | XMS_ITS | Clinical Summary ---
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 Active cholecalcifero l (VITAMIN D-3) 25 mcg (1,000 unit) tablet Take 1 tablet (1,000 Units total) by mouth 1 (one) time each day. Active cyanocobalamin (VITAMIN B-12) 1,000 mcg tablet Take 1 tablet (1,000 mcg total) by mouth 1 (one) time each day. Active fluticasone-sa lmeterol (ADVAIR DISKUS) 250-50 mcg/dose diskus inhaler Inhale 1 puff by mouth 2 (two) times a day. Active fluticasone propionate (FLONASE) 50 mcg/actuation nasal spray Administer 1 spray into affected nostril(s). Active gabapentin (NEURONTIN) 300 mg capsule Take [...] mouth 1 (one) time each day. Active torsemide (DEMADEX) 20 mg tabletIndicati ons:Localized edema Take 1 tablet (20 mg total) by mouth 1 (one) time each day. 90 each 3 5 07/17/19 26 Active metOLazone (ZAROXOLYN) 5 mg tabletIndicati ons:Localized edema Take one tablet by mouth the morning of 07/25/24. Do not take further doses unless directed by Cardiology. 10 each 5 Active apixaban (ELIQUIS) 2.5 mg tablet Take 1 tablet (2.5 mg total) by mouth 2 (two) times a day. 180 tablet 2 5 Active rosuvastatin (CRESTOR) 20 mg tablet Take 1 tablet (20 mg total) by mouth 1 (one) time each day. 90 tablet 1 5 Active apixaban (ELIQUIS) 5 mg tablet Take 0.5 tablets (2.5 mg total) by mouth 2 (two) times a day. 12/11/19 Discontinu ed(Reorder ) rosuvastatin (CRESTOR) 40 mg tablet Take 0.5 tablets (20 mg total) by mouth 1 (one) time each day. 12/11/19 Discontinu ed(Reorder ) doxycycline (VIBRAMYCIN) 100 mg capsule Take 1 capsule (100 mg total) by mouth 2 (two) times a day for 10 days. Take with at least 8 ounces (large glass) of water, do not lie down for 30 minutes after. Administer 2 hours before or after multivitamins, antacids, or other products containing polyvalent cations (i.e., calcium, iron, magnesium, selenium, zinc). 20 capsule 5 11/29/19 25 Active Problems Problem Noted Date Diagnosed Date Localized edema 07/16/2024 Assessment & Plan (12/10/2024 9:39 AM EDT): Patient reports that leg edema has improved since witching to torsemide. He also uses compression stockings which have been helpful. Assessment & Plan (07/16/2024 1:20 PM EDT): He has significant lower extremity edema with significant swelling. Will switch his Lasix to 20 mg of torsemide he is given a lab slip to check for basic metabolic profile will obtain venous insufficiency studies of the lower extremities. Is been encouraged to wear support socks and begin a [facility] Orders: torsemide (DEMADEX) 20 mg tablet; Take 1 tablet (20 mg total) by mouth 1 (one) time each day. Transthoracic echocardiogram (TTE) complete with PRN contrast, bubble, strain, and 3D order panel; Future Vascular US duplex lower extremity venous insufficiency bilateral; Future Basic metabolic panel; Future Atrial fibrillation (CMS/HCC V24, CMS/HCC V28) 0 07/23/2021 Assessment & Plan (12/10/2024 9:39 AM EDT): Patient has history of paroxysmal atrial fibrillation with very rare breakthrough. He continues on chronic anticoagulation with Eliquis 2.5 mg twice daily. This is appropriately dosed given his advanced age and renal insufficiency. He remains asymptomatic and denies any bleeding or excessive bruising. Assessment & Plan (07/16/2024 1:20 PM EDT): Patient with rare episodes of atrial fibrillation. 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 He has a [employer] device in place. He continues with routine visits to our device clinic. Coronary artery disease 07/23/2021 Overview (12/26/2023): Last Assessment & Plan: Remote history of coronary disease. Asymptomatic at this time bypass is almost 20 years old lipid profile under good control [facility]. Patient experiences no chest pain or discomfort though sedentary. Assessment & Plan (12/10/2024 9:39 AM EDT): Patient has history of coronary artery disease with previous bypass surgery. He feels well and denies any exertional anginal symptoms. He remains on cardioprotective medical therapy with beta-sonya and statin. He is on Eliquis for thrombolic protection. I have reviewed with the patient the importance of a heart healthy lifestyle which includes eating a low-fat low-salt diet, getting regular exercise, maintaining a healthy weight, not smoking, and following up with routine medical care. Sleep apnea 07/23/2021 Overview (12/26/2023): Last Assessment [...] to a sleep pattern physician through the [facility]. The [facility] is managing his sleep apnea. His daughter was present and has some experience with CPAP machines. And I encouraged them to discuss the possibility of referral for a sleep physician assessment or at least a titration study which she is never had Encounters Date Type Department Care Team Description 12/10/2024 9:10 AM EDT Office Visit [facility] [address] [place] [id number] Evelina Blackman NP Coronary artery disease involving mcgrath coronary artery of mcgrath heart without angina pectoris (Primary Dx); Atrial fibrillation, unspecified type (CMS/HCC V24, CMS/HCC V28); Bradycardia; Localized edema 11/18/2024 6:48 PM EDT - 11/18/2024 10:29 PM EDT Emergency [facility] Emergency [address] [place] [phone] Bao Martinez MD Cellulitis of left leg (Primary Dx) Discharge Disposition: Home or Self Care 11/11/2024 5:30 PM EDT Ancillary Procedure [facility] [address] [place] [address] 09/24/2024 7:00 AM EDT Ancillary Procedure [facility] [address] [place] [address] Localized edema from Last 3 Months Immunizations Immunization Administration Dates Next Due Pfizer SARS-CoV-2 COVID-19, mRNA, LNP-S, preservative free 05/04/2020,04/13/2020 Medical History Medical History Date Comments COPD (chronic obstructive pu lmonary disease) ([facility] V24, [facility] V28) Pacemaker 08/2021 S/P quadruple vessel bypass 2002 Social History Tobacco Use Types Packs/Day Years Used Date Smoking Tobacco: Every Day Smokeless Tobacco: Never Tobacco Cessation:Ready to Q uit: Not Asked; Counseling Given: Not Answered Alcohol Use Standard Drinks/Week Comments Yes 0 [...] Pulse 81 12/10/2024 9:13 AM EDT Temperature 36.6 C (97.8 F) 11/18/2024 10:10 PM EDT Respiratory Rate 20 11/18/2024 10:10 PM EDT Oxygen Saturation 95% 12/10/2024 9:13 AM EDT Inhaled Oxygen Concentration - - Weight 83.7 kg (184 lb 9.6 oz) 12/10/2024 9:13 A M EDT Height 172.7 cm (5' 8 ) 12/10/2024 9:13 AM EDT Body Mass Index 28.07 12/10/2024 9:13 AM EDT Plan of Treatment Upcoming Encounters Date Type Department Care Team (Late st Contact Info) Description 08/05/2025 1:00 PM EDT Ancillary Procedure [facility] [address] [facility] [address] [place] [address] Health Maintenance Due Date Last Done Comments Zoster Vaccines (2 of 3) 02/01/2013 12/07/2012 RSV Immunization Adult Patients (1 - 1-dose 75+ series) 2013 Pneumococcal Vaccine: 50+ Years (2 of 2 - PPSV23, PCV20, or PCV21) 10/03/2014 08/08/2014, 03/06/2008 Cholesterol Screening (Lipid Panel) 02/13/2022 Falls Risk Assessment 02/13/2022 Social Influencers of Health Screening 02/13/2022 DTaP,Tdap,and Td Vaccines (3 - Td or Tdap) 01/22/2024 01/21/2014, 03/06/2008 Depression Screening 03/06/2024 COVID-19 Vaccine (3 - 2024- season) 2024 05/04/2020, 04/13/2020 Influenza Vaccine (#1) 2024 , 02/24/2023, 12/29/2021, Additional history exists Hypertension/CHF/CAD Annual BMP Blood Test 11/18/2025 11/18/2024, 09/20/2024, 08/09/2024, Additional history exists HIB Vaccines Aged Out [...] this topic Medical Devices Implanted Type Area Customer Expert Device Identifier Shelf Expiration Date Model / Serial / Lot Medt-Card Mccammon Xt Dr Salas [id number] Implanted:05/2021 (Quantity not on file) Cardiac Pacemaker [employer] - CARDIAC RHYTH-CRDM LV XT DR SALAS [id number] / [id number] / Medt-Card Mccammon Xt Dr Salas [id number] Implanted:05/2021 (Quantity not on file) Cardiac Pacemaker [employer] - CARDIAC RHYTH-CRDM LV XT DR SALAS / [id number] / Procedures Procedure Name Priority Date/Time Associated Diagnosis Comments CBC WITH AUTO DIFFERENTIAL STAT 11/18/2024 8:58 PM EDT BASIC METABOLIC PANEL STAT 11/18/2024 8:58 PM EDT CBC AND DIFFERENTIAL STAT 11/18/2024 8:58 PM EDT LACTATE STAT 11/18/2024 8:58 PM EDT CARDIAC DEVICE CHECK- REMOTE- MURJ Routine 11/11/2024 5:29 PM EDT VAS US DUPLEX LOWER EXT VENOUS INSUFFICIENCY BILATERAL Routine 09/24/2024 7:41 AM EDT Localized edema BASIC METABOLIC PANEL Routine 09/20/2024 10:13 AM EDT Atrial fibrillation (CMS/HCC V24, CMS/HCC V28) Coronary atherosclerosis of mcgrath coronary artery from Last 3 Months Results * (ABNORMAL) CBC auto differential (11/18/2024 8:58 PM EDT) WBC 9.7 4.8 - 10.8 K/mcL LAB HEMETOLOGY METHOD 11/18/2024 9:[address] [facility] RBC 4.80 4.50 - 5.50 M/mcL LAB HEMETOLOGY METHOD 11/18/2024 9:[address] [facility] Hemoglobin 14.2 13.5 - 17.5 g/dL LAB HEMETOLOGY METHOD 11/18/2024 9:[address] [facility] Hematocrit 43.8 42.0 - 54.0 % LAB HEMETOLOGY METHOD 11/18/2024 9:[address] [facility] MCV 92.0 79.0 - 98.0 FL LAB HEMETOLOGY METHOD 11/18/2024 9:[address] [facility] MCH 29.8 27.0 - 32.0 pcg LAB [facility] MCHC 32.4 32.0 - 37.0 g/dL LAB HEMETOLOGY METHOD 11/18/2024 9:21 PM [facility] RDW 12.8 11.0 - 15.0 % LAB HEMETOLOGY METHOD 11/18/2024 9:[address] [facility] Platelets 131 130 - 400 K/mcL LAB HEMETOLOGY METHOD 11/18/2024 9:21 PM [facility] MPV 12.2(H) 7.0 - 11.0 FL LAB HEMETOLOGY METHOD 11/18/2024 9:21 PM [facility] NRBC 0.0 <1.0 % LAB HEMETOLOGY METHOD 11/18/2024 9:21 PM [facility] NRBC Absolute 0.00 <0.10 K/mcL LAB HEMETOLOGY METHOD 11/18/2024 9:21 PM [facility] Neutrophils Relative 65.2 % LAB HEMETOLOGY METHOD 11/18/2024 9:21 PM [facility] Lymphocytes Relative 25.2 % LAB HEMETOLOGY METHOD 11/18/2024 9:21 PM [facility] Monocytes Relative 6.8 % LAB HEMETOLOGY METHOD 11/18/2024 9:21 PM [facility] Eosinophils Relative 2.0 % LAB HEMETOLOGY METHOD 11/18/2024 9:21 PM [facility] Basophils Relative 0.6 % LAB HEMETOLOGY METHOD 11/18/2024 9:21 PM [facility] Immature Granulocytes Relative 0.2 % LAB HEMETOLOGY METHOD 11/18/2024 9:21 PM [facility] Neutrophils Absolute 6.32 1.50 - 7.00 K/mcL LAB HEMETOLOGY METHOD 11/18/2024 9:[address] [facility] Lymphocytes Absolute 2.44 1.00 - 5.00 K/mcL LAB HEMETOLOGY METHOD 11/18/2024 9:[address] [facility] Monocytes Absolute 0.66 0.20 - 1.00 K/mcL LAB HEMETOLOGY METHOD 11/18/2024 9:[address] [facility] Eosinophils Absolute 0.19 0.00 - 0.50 K/mcL LAB HEMETOLOGY METHOD 11/18/2024 9:[address] [facility] Basophils Absolute 0.06 0.00 - 0.20 K/mcL LAB HEMETOLOGY METHOD 11/18/2024 9:[address] [facility] Immature Granulocytes Absolute 0.02 0.00 - 0.03 K/mcL LAB HEMETOLOGY METHOD 11/18/2024 9:[address] [facility] Blood Venous blood specimen / Unknown Venipuncture / Unknown 11/18/2024 8:58 PM EDT 11/18/2024 9:07 PM EDT us Bao Martinez MD LAB BLOOD ORDERABLES Final Resul t [facility] [address] [place] [address], * Lactate (11/18/2024 8:58 PM EDT) Lactate 2.0 0.4 - 2.0 mmol/L LAB CHEMISTRY METHOD 11/18/2024 9:[address] [facility] Blood Venous blood specimen / Unknown Venipuncture / Unknown 11/18/2024 8:58 PM EDT 11/18/2024 9:06 PM EDT us Bao Martinez MD LAB BLOOD ORDERABLES Final Resul t [facility] [address] [place] [address], * (ABNORMAL) Basic metabolic panel (11/18/2024 8:58 PM EDT) Only the most recent of2 resultswithin the time period is included. Sodium 139 133 - 145 mmol/L LAB CHEMISTR[facility] Potassium 4.2 3.5 - 5.5 mmol/L LAB CHEMISTRY METHOD 11/18/2024 9:26 PM [facility] Chloride 100 96 - 110 mmol/L LAB CHEMISTRY METHOD 11/18/2024 9:26 PM [facility] CO2 34(H) 21 - 32 mmol/L LAB CHEMISTRY METHOD 11/18/2024 9:26 PM [facility] Anion Gap 5 3 - 11 LAB CHEMISTRY METHOD 11/18/2024 9:26 PM [facility] Glucose 122(H) 70 - 100 mg/dL LAB CHEMISTRY METHOD 11/18/2024 9:26 PM [facility] BUN 26(H) 5 - 25 mg/dL LAB CHEMISTRY METHOD 11/18/2024 9:26 PM [facility] Creatinine 1.74(H) 0.70 - 1.30 mg/dL LAB CHEMISTRY METHOD 11/18/2024 9:26 PM [facility] eGFR 38(L) >=60 mL/min/1. 73m2 LAB CHEMISTRY METHOD 11/18/2024 9:26 PM [facility] Comment:Calculation based on the Chronic Kidney Disease Epidemiology Collaboration (CKD-EPI) equation refit without adjustment for race. BUN/Creatinine Ratio 14.9 LAB CHEMISTRY METHOD 11/18/2024 9:[address] [facility] Calcium 9.8 8.5 - 10.5 mg/dL LAB CHEMISTRY METHOD 11/18/2024 9:[address] [facility] Blood Venous blood specimen / Unknown Venipuncture / Unknown 11/18/2024 8:58 PM EDT 11/18/2024 9:07 PM EDT us Bao Martinez MD LAB BLOOD ORDERABLES Final Resul t [facility] [address] [place] [address], * Cardiac device check - Remote- MURJ (11/11/2024 5:29 PM EDT) Date Time Interrogation Session [id number] CV DEVICE CHECK Type Interrogation Session Remote CV DEVICE CHECK Implantable Pulse Generator Customer Expert MDT CV DEVICE CHECK Implantable Pulse Generator Type IPG CV DEVICE CHECK Implantable Pulse Generator Model Lv XT DR MRI [id number] CV DEVICE CHECK Implantable Pulse Generator Serial Number [id number] CV DEVICE CHECK Implantable Pulse Generator Implant Date 20210706 CV DEVICE CHECK Battery Remaining Longevity 107.0 CV DEVICE CHECK Battery Voltage 3.000 CV D EVICE CHECK Battery WOOD FENCE INSTALLER Trigger 2.625 CV DEVICE CHECK Battery Status Middle of Service CV DEVICE CHECK Sunil Statistic RA Percent Paced 92.86 CV DEVICE CHECK Sunil Statistic RV Percent Paced 93.02 CV DEVICE CHECK Atrial Tachy Statistic AT/AF [place] Percent 0.00 CV DEVICE CHECK Lead Channel Sensing Intrinsic Amplitude 3.375 CV DEVICE CHECK Lead Channel Setting Sensing Sensitivity 0.30 CV DEVICE CHECK Lead Channel Impedance Value 399 CV DEVICE CHECK Lead Channel Pacing Threshold Amplitude 0.625 CV DEVICE CHECK Lead Channel Pacing Threshold Pulse Width 0.4 CV DEVICE CHECK Lead Channel RA Pacing Threshold Date 2024-10-19 CV DEVICE CHECK Lead Channel Setting Pacing Amplitude 1.500 CV DEVICE CHECK Lead Channel Setting Pacing Pulse Width 0.4 CV DEVICE CHECK Lead Channel Sensing Intrinsic Amplitude 25.250 CV DEVICE CHECK Lead Channel Setting Sensing Sensitivity 0.90 CV DEVICE CHECK Lead Channel Impedance Value 589 CV DEVICE CHECK Lead Channel Pacing Threshold Amplitude 0.750 CV DEVICE CHECK Lead Channel Pacing Threshold Pulse Width 0.4 CV DEVICE CHECK Lead Channel RV Pacing Threshold Date 2024-11-01 CV DEVICE CHECK Lead Channel Setting Pacing [...] 6 CV DEVICE CHECK Date of Service 2024-11-26 CV DEVICE CHECK Anatomical Region Laterality Modality Device Interroga tion 11/02/2024 1:17 AM EDT Impressions 11/11/2024 9:46 AM EDT Normal Remote: No Events * Normal Device Function * Alerts or events: None * Battery: OK, 8.92 yrs * Sensing, impedance and thresholds reviewed * Programmed parameters reviewed * Presenting rhythm reviewed * Heart Rate Histograms reviewed * No significant changes noted Narrative Procedure Note Bao Pacheco MD - 11/11/2024 IMPRESSION: Normal Remote: No Events * Normal Device Function * Alerts or events: None * Battery: OK, 8.92 yrs * Sensing, impedance and thresholds reviewed * Programmed parameters reviewed * Presenting rhythm reviewed * Heart Rate Histograms reviewed * No significant changes noted us Bao Pacheco MD CV IMPLANTABLE CARDIAC DEVICE PROCEDURES Final Result * Vascular US duplex lower extremity venous insufficiency bilateral (09/24/2024 7:41 AM EDT) Left GSK kriss 0.26 cm CV VAS LAB Left GSDC kriss 0.22 cm CV VAS LAB Left GSMT kriss 0.28 cm CV VAS LAB Left GSPC kriss 0.26 cm CV VAS LAB Left GSPT kriss 0.21 cm CV VAS LAB Left SFJ Diameter 0.69 cm CV VAS LAB Left SSMC kriss 0.38 cm CV VAS LAB Left SSPC kriss 0.38 cm CV VAS LAB Right GSPT kriss 0.18 cm CV VAS LAB Right pop reflux 444 ms CV VAS LAB Right SFJ Diameter 0.42 cm CV VAS LAB Right SSMC kriss 0.30 cm CV VAS LAB Right SSPC kriss 0.35 cm CV VAS LAB Right AAS kriss 0.18 cm CV VAS LAB Right SPJ Diameter 0.34 cm CV VAS LAB Anatomical Region Laterality Modality Vascular, Abdomen Ultrasound Narrative 09/24/2024 1:26 PM EDT Right No right deep vein thrombosis. Right deep veins are competent. Right GSV was harvested for bypass remotely. Only a short segment of proximal GSV is present. Right SSV has no significant reflux. Subcutaneous edema noted in the lower calf. Left No left deep vein thrombosis. Left deep veins are competent. Left superficial veins have no thrombosis. Left GSV has minimal reflux at the lower calf. Left SSV has no significant reflux. Subcutaneous edema in the lower calf noted. Right Lower Venous No evidence of deep vein thrombosis in the common femoral, deep femoral, proximal femoral, mid femoral, distal femoral, popliteal, small saphenous, posterior tibial and peroneal veins of the right leg. The vessels showed compressibility. Interrogation showed phasic and spontaneous Doppler signals. Right Venous Insufficiency Duplex The exam was performed with the patient in reverse Trendelenburg. Left Lower Venous No evidence of deep vein thrombosis in the common femoral, deep femoral, proximal femoral, mid femoral, distal femoral, popliteal, greater saphenous, small saphenous, posterior tibial and peroneal veins of the left leg. The vessels showed compressibility. Interrogation showed phasic and spontaneous Doppler signals. Left Venous Insufficiency Duplex The exam was performed with the patient in reverse trendelenburg. Left saphenopopliteal junction was not identified. Printed Circuit Layout Taper Details A carmona scale, color and doppler analysis ultrasound was performed. During the study longitudinal and transverse views were obtained. Continuous wave doppler and pulsed wave doppler was performed. Overall the study quality was good. us Yury Mir MD CV VASCULAR PROCEDURES Final R esult from Last 3 Months Insurance [facility] Care Teams Artificial Flowers Dyer Relationship Specialty Start Date End Date Physician, No Pcp PCP - General 11/18/24
== END 2024-12-10 15:39 | disposition home or self-care (01) ==
LOC: HO.HPS 15:09
PROVIDERS: PCP Family Medicine; Visit Provider Internal Medicine
DX: J44.9 Chronic obstructive pulmonary disease, unspecified (principal); J98.4 Other disorders of lung; G47.33 Obstructive sleep apnea (adult) (pediatric); F17.200 Nicotine dependence, unspecified, uncomplicated
CPT/HCPCS: 99213

== ENCOUNTER → 2024-12-10 15:09 | Outpatient (BNVA) | payer OTHER, SELFPAY | PROVIDERS: PCP Internal Medicine; Visit Provider Internal Medicine | DX: J44.9 Chronic obstructive pulmonary disease, unspecified (principal); J98.4 Other disorders of lung; G47.33 Obstructive sleep apnea (adult) (pediatric); F17.200 Nicotine dependence, unspecified, uncomplicated | CPT/HCPCS: 99212 ==